=== PATIENT | female | born 1995 | race Two or more races ===

== ENCOUNTER 2021-09-21 13:44 | Emergency (ER) | payer OTHER ==
[~2021-09-21] VITALS: Ht 177.8 cm; Wt 97.5 kg
[2021-09-21] MEDS ORDERED: ALBUTEROL SULF 2.5 MG/0.5ML(0.5%) NEB SOLN HHN STA (13:54)
[2021-09-21] MEDS ORDERED: methylPREDNISolone SOD SUCC 125 MG/2 ML VL ONE (13:59)
[2021-09-21] MEDS ORDERED: IPRATROPIUM BROM 0.5 MG/2.5ML INH SOL NEB ONE ×2 (14:00→14:30)
[2021-09-21] MEDS ORDERED: methylPREDNISolone SOD SUCC 125 MG/2 ML VL IV ONE (14:30)
[2021-09-21] MEDS ORDERED: CEFTRIAXONE SODIUM 2 GM in D5W 5% 50 ML IV ONE (14:30)
[2021-09-21] MEDS ORDERED: ALBUTEROL SULF 2.5 MG/0.5ML(0.5%) NEB SOLN NEB ONE ×3 (14:30→14:45)
[2021-09-21 14:41] VITALS: BP 134/85
[2021-09-21 15:32] LABS: Basophils # (auto) 0 10 ^3/uL (0-0.2); Basophils % (auto) 0.7 % (0.0-2.0); Eosinophils # (auto) 0.5 10 ^3/uL (0-0.8); Eosinophils % (auto) 8.9 % (0.0-7.0); Hematocrit 41.3 % (36.0-46.0); Lymphocytes # (auto) 1.4 10 ^3/uL (0.4-5.4); Lymphocytes % (auto) 25.6 % (10.0-50.0); Mean Corpuscular Hemoglobin 29.1 pg (28.0-32.0); Mean Corpuscular Hgb Conc. 33.8 g/dL (32.0-36.0); Mean Corpuscular Volume 86.1 fL (80.0-100.0); Monocytes # (auto) 0.4 10 ^3/uL (0-1.3); Monocytes % (auto) 8.3 % (0.0-12.0); Neutrophils % (auto) 56.5 % (37.0-80.0); Nucleated Red Blood Cells % 0.1 %; Red Cell Distribution Width 14.5 % (11.8-14.3); White Blood Cell 5.3 10^3/uL (4.4-10.8)
[2021-09-21] MEDS ORDERED: ALBU108A5 IN ×3 (15:57→16:14)
[2021-09-21] MEDS ORDERED: LORATADINE 10 MG TAB PO ONE (16:00)
[2021-09-21 16:04] LABS: Urine Bacteria FEW /hpf (None Seen); Urine Blood 1+ /uL (Negative); Urine Mucus FEW (None Seen); Urine Specific Gravity 1.031 (1.001-1.035); Urine WBC 2 /hpf (0 - 5)
== END 2021-09-21 16:44 | disposition home or self-care (01) ==
LOC: ER 13:44
DX: J45.909 Unspecified asthma, uncomplicated (principal)
CPT/HCPCS: 36415; 71045; 81001; 81025; 84702; 85025; 94640; 94644; 96365; 96375; 99285; J0696; J2930; J7060; J7644